=== PATIENT | female | born 1985 | race Two or more races ===

== ENCOUNTER 2023-03-13 09:00 | Emergency (ER) | payer OTHER ==
[~2023-03-13] VITALS: Ht 175.3 cm; Wt 77.1 kg
[~2023-03-13 09:00] MED LIST: CHILDREN'S ASPI81 MG PO; KAPVAY0.1 MG PO; MILLIPRED5 MG PO; NIFE60TA3 PO; NIFEDIPINE10 MG PO; PREDNISONE 5MG PO; PRENATAL + DHA1 EAC1 PO; PRENATAL TABLE1 EAC1 PO; SYNTHROID75 MCG PO; TRANDATE300 MG PO
[2023-03-13] MEDS ORDERED: DICLOFENAC SODI75 MG PO (12:14)
== END 2023-03-13 13:51 | disposition home or self-care (01) ==
LOC: ER 09:00
DX: S59.801A Other specified injuries of right elbow, initial encounter (principal); W18.39XA Other fall on same level, initial encounter; Y93.E5 Activity, floor mopping and cleaning; Y92.018 Other place in single-family (private) house as the place of occurrence of the external cause

== ENCOUNTER 2023-04-11 09:43 | Emergency (ER) | payer OTHER ==
[~2023-04-11] VITALS: Ht 175.3 cm; Wt 77.1 kg
[~2023-04-11 09:43] MED LIST changes: +DICLOFENAC SODI75 MG PO
== END 2023-04-11 15:03 | disposition home or self-care (01) ==
LOC: ER 09:43
PROVIDERS: General Practice
DX: D32.0 Benign neoplasm of cerebral meninges (principal)